=== PATIENT | female | born 1965 | race Caucasian/White ===

== ENCOUNTER 2024-10-15 10:32 | Outpatient (REF) | payer MEDICARE, SELFPAY ==
--- NOTE | ~2024-10-15 | US_ITS ---
CLINICAL HISTORY: DECREASED RT SIDED CAROTID PULSE US Bilateral Carotid Duplex Comparison: None Findings: Bilateral carotid plaques. No arrhythmia. Peak systolic velocities: Right CCA: 111 cm/s. Right ICA: 123 cm/s. Right ECA: Patent. Right vertebral artery flow antegrade. Left CCA: 75 cm/s. Left ICA: Up to 303 cm/s at level of the bulb. Left ECA: Patent. Left vertebral artery flow antegrade. IMPRESSION: Equal to more than 70% stenosis at level of the left ICA bulb. Up to 49% stenosis at level of right ICA and both CCAs. This document has been electronically signed by: Gracie Powell MD on 10/15/2024 12:06:55
--- OUTSIDE RECORDS SUMMARY | 2024-10-15 10:35 | XMS_ITS | Clinical Summary ---
Author Organization [facility] Address [address] [place] [address] Care Team Providers Care Material Disposition Inspector Name Role Phone Unavailable Primary Care Provider Unavailabl e Social History Tobacco Use Types Packs/Day Years Used Date Smoking Tobacco: Never Assessed Sex and Gender Information Value Date Recorded Sex Assigned at Not on file Gender Identity Not on file Sexual Orientation Not on file Plan of Treatment Health Maintenance Due Date Last Done Comments Hepatitis C Virus Screening 1965 HIV Screening 01/27/1976 DTaP/Tdap/Td Vaccines (1 - Tdap) 1982 Pneumococcal Vaccines 50+ (1 of 1 - PCV) 2013 Zoster (Shingles) Vaccine (1 of 2) 2013 COVID-19 Vaccine ( - 2023-2 5 season) 2024 RSV Vaccine 60 years and old er and Patients (1 - 1-dose 75+ series) 2038 Hepatitis B Vaccines Aged Out No long er eligible based on patient's age to complete this topic Pneumococcal Vaccine: Pediat kadeem (0-5 Years) and At-Risk Patients (6 to 49 Years) Aged Out No longer eligible b ased on patient's age to complete this topic
== END 2024-10-15 10:33 | disposition home or self-care (01) ==
LOC: HO.US 10:32
PROVIDERS: PCP Internal Medicine; Visit Provider Internal Medicine
DX: I65.21 Occlusion and stenosis of right carotid artery (principal)
CPT/HCPCS: 93880

== ENCOUNTER → 2024-10-15 10:35 | Outpatient (BNV) | payer MEDICARE, SELFPAY | PROVIDERS: PCP Internal Medicine; Visit Provider Radiology Diagnostic Radiology | DX: I65.23 Occlusion and stenosis of bilateral carotid arteries (principal) | CPT/HCPCS: 93880 ==

== ENCOUNTER 2024-11-06 11:20 | Outpatient (AMB) | payer MEDICARE, SELFPAY ==
--- NOTE | 2024-11-06 11:23 | MHC.OFFVIS ---
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 Patient states she saw her primary care and was told she needed a ultrasound because he could not find a pulse in her feet or neck. No symptoms. Accompanied by: Self / Same As Patient HPI HPI [employer] NETWORK ANALYST/PCP referral for Carotid Stenosis/US 10/15/24: Details: The patient is a 59-year-old female presenting for evaluation of carotid artery disease. Her medical history is significant for an ischemic stroke in November 2005 when she lived in [place], with resulting transient left-sided paralysis which has since completely resolved. Following a recent examination by Dr. Gipson, he was concerned about her carotid status which led to an ultrasound and now for vascular follow-up. During the discussion, the patient disclosed a current smoking habit of approximately six to seven cigarettes daily, indicating efforts to cut down consumption. No history of diabetes mellitus was reported, and she is able to ambulate 0.3 miles to the grocery store with no difficulty. She is currently managed with 81 mg of aspirin and Rosuvastatin, 40 mg daily, which are part of her cerebrovascular prevention strategy, focusing on reducing stroke risk. She is now for vascular follow-up Review of Systems Const All systems reviewed & are unremarkable except as noted in HPI and below Reports no additional complaints ENT Reports Normal hearing present Card Denies chest pain, Denies chest pain at rest, Denies chest pain with activity and Denies pedal edema Resp Denies cough GI Denies abdominal pain Musc Denies abnormal gait, Denies muscle cramps and Denies radiating pain into limb Skin/Breast Denies skin ulcer and Denies wounds Neuro Reports Normal hearing present and Denies abnormal gait Psych Reports no additional complaints Physical Exam Const General: cooperative, healthy appearing and comfortable Orientation/consciousness: oriented to person, oriented to place and oriented to time HEENT Head: Yes normal to inspection Neck Neck: Yes normal visual inspection Carotids: no bruits Chest Chest palpation & inspection: normal inspection of the chest Resp Effort & Inspection: normal respiratory effort and able to speak in complete sentences Auscultation: clear to auscultation bilaterally, no crackles, no rales, no rhonchi and no wheezes Cardio Other: Bilateral DP signals Rate: regular rate Rhythm: regular rhythm Heart sounds: S1 normal heart sound present and S2 normal heart sound present Bruits: no carotid bruits Peripheral pulses: Peripheral pulses 2+ throughout GI Inspection: Yes normal to inspection Skin Wounds: no wounds Hair: normal Neuro General: oriented to person, oriented to place and oriented to time Cranial nerves: Yes CN's II-XII intact bilaterally and Yes Normal hearing present Cognition (Neuro): normal cognition Motor exam (neuro): 5/5 motor strength present throughout Extrem Other: venous exam: No significant superficial varicosities or spider telangiectasias, minimal edema General: No clubbing, No cyanosis and No edema Psych Appearance: grossly normal Mental Status: mental status grossly normal Speech and movement: Normal speech and movement present Assessment & Plan Assessment & Plan (1) Bilateral carotid artery stenosis: Code(s): I65.23 - Occlusion and stenosis of bilateral carotid arteries Category: Medical Plan: The patient needs a computed tomography angiography CTA) to evaluate the degree of stenosis on the left carotid artery following abnormal ultrasound findings. The attention is directed towards assessing if the stenosis has reached a threshold where surgical intervention is indicated to prevent stroke, particularly if it is more than 70%. Kidney function tests are to precede the CTA to ensure it is safe to proceed with contrast administration. Current management with daily aspirin and Rosuvastatin continues, emphasizing the prevention of cerebrovascular events. Arrangements were discussed for immediate blood tests at nearby facilities. No adjustments to current medication are required at this time until further diagnostic results are available. Patient was informed and verbally consented to the use of an ambient scribe for clinic note documentation during this visit. (2) PAD (peripheral artery disease): Code(s): I73.9 - Peripheral vascular disease, unspecified Category: Medical Plan: There is concern that she may have an element of PA D. At the current time she is ambulating well up to 0.3 miles with no evidence of claudication. She does have diminished DP and PT pulses. She will be following us for the carotids and we will continue to a surveilled these as well. At the current time no testing is required. The patient had an opportunity to ask questions regarding the treatment plan. All questions were answered. Imaging studies, laboratory studies and physical exam results were discussed and reviewed in detail. No major barriers to understanding were identified. The patient expressed understanding and agreement with the above treatment plan. The patient is aware they should contact our office by phone for worsening of the current condition or the appearance of new symptoms. Thank you for allowing me to participate in the vascular care of this patient. If you have any questions or concerns regarding the treatment for the above condition please do not hesitate to contact me. The office telephone contact is [phone]. This note is constructed using voice recognition software. While every effort has been made to ensure accuracy, channel rebuilder errors may have been included. Thank you for allowing me to participate in the care of your patient. Yours sincerely, Rajinder Maguire MD, FACS, R.P.V.I. Orders: Orders CT angio neck 1 Week I65.23 - Occlusion and stenosis of bilateral carotid arteries Blood Urea Nitrogen Today I65.23 - Occlusion and stenosis of bilateral carotid arteries Creatinine Today I65.23 - Occlusion and stenosis of bilateral carotid arteries Patient Instructions: - Continue current medications: 81 mg aspirin daily, 40 mg Rosuvastatin daily. - Proceed to the hospital for blood tests to check kidney function today. - Await call from the hospital for CT imaging scheduling. - Continue reducing smoking, aiming for complete cessation. - Monitor for any signs of stroke: sudden weakness, speech changes, vision problems. - Keep routine follow-ups and consider contacting the clinic with any new symptoms. Coding Level of Care Code New Pt Level 4 (87165) Complex EM visit Add On G2211 Diagnoses Bilateral carotid artery stenosis I65.23 PAD (peripheral artery disease) I73.9
--- OUTSIDE RECORDS SUMMARY | 2024-11-06 14:02 | XMS_ITS | Clinical Summary ---
Author Organization [facility] Address [address] [place] [address] Care Team Providers Care Reeling Operator Name Role Phone Unavailable Primary Care Provider [...]
== END 2024-11-06 11:44 | disposition home or self-care (01) ==
LOC: HO.HVS 11:21
PROVIDERS: PCP Internal Medicine; Visit Provider Surgery Vascular Surgery
DX: I65.23 Occlusion and stenosis of bilateral carotid arteries (principal); I73.9 Peripheral vascular disease, unspecified
CPT/HCPCS: 99204; G2211

== ENCOUNTER 2024-11-06 11:20 | Outpatient (REF) | payer MEDICARE, SELFPAY ==
[2024-11-06 13:21] LABS: Blood Urea Nitrogen 33 mg/dL (9-16); Estimated Glomerular Filt Rate 46
--- OUTSIDE RECORDS SUMMARY | 2024-11-06 14:41 | XMS_ITS | Clinical Summary ---
Author Organization [facility] Address [address] [place] [address] Care Team Providers Care Nursing Home Aide Name Role Phone Unavailable Primary Care Provider [...]
== END 2024-11-06 11:21 | disposition home or self-care (01) ==
LOC: HO.LAB 11:20
PROVIDERS: PCP Internal Medicine; Visit Provider Surgery Vascular Surgery
DX: I65.23 Occlusion and stenosis of bilateral carotid arteries (principal); I73.9 Peripheral vascular disease, unspecified
CPT/HCPCS: 36415; 82565; 84520; 99202

== ENCOUNTER 2025-02-06 07:57 | Outpatient (REF) | payer MEDICARE, SELFPAY ==
--- OUTSIDE RECORDS SUMMARY | 2025-02-06 08:00 | XMS_ITS | Clinical Summary ---
Author Organization [facility] Address [address] [place] [address] Care Team Providers Care Lease Operator Name Role Phone Unavailable Primary Care Provider Unavailabl e Social History Tobacco Use Types Packs/Day Years Used Date Smoking Tobacco: Never Assessed Comments Unknown Sex and Gender Information Value Date Recorded Sex Assigned at Not on file Legal Sex Female 11:30 AM EDT Gender Identity Not on file Sexual Orientation [...]
[2025-02-06 08:54] LABS: Creatinine POC 1.7 mg/dL (0.5-1.4); GFR POC 32
[2025-02-06] MEDS: iohexoL 350 MG/ML 100 ML INFUS..BTL IV (09:05)
== END 2025-02-06 07:58 | disposition home or self-care (01) ==
LOC: HO.CT 07:57
PROVIDERS: PCP Internal Medicine; Visit Provider Surgery Vascular Surgery
DX: I65.23 Occlusion and stenosis of bilateral carotid arteries (principal)
CPT/HCPCS: 70498; 82565; Q9967

== ENCOUNTER → 2025-02-06 07:59 | Outpatient (BNV) | payer MEDICARE, SELFPAY | PROVIDERS: PCP Internal Medicine; Visit Provider Radiology Diagnostic Radiology | DX: I65.23 Occlusion and stenosis of bilateral carotid arteries (principal) | CPT/HCPCS: 70498 ==

== ENCOUNTER 2025-02-26 10:57 | Outpatient (AMB) | payer MEDICARE, SELFPAY ==
--- NOTE | 2025-02-26 10:59 | A.OFFVIS_ITS ---
Intake Visit Reasons: follow up CTA Neck Intake Note: Patient presents for follow up CTA neck performed on 02/06/25. No complaints. Accompanied by: Self / Same As Patient Allergies No Known Allergies Allergy (Verified 02/26/25 11:00) HPI HPI follow up CTA Neck: Details: Very pleasant 60-year-old female presents for follow-up regarding carotid disease. She had an ischemic stroke back in November of 2005 when she was down in [place] that resulted in transient left-sided paralysis. She has worked up by her primary care team for her carotid status. Ultrasound was concerning for high-grade carotid stenosis and she now presents for follow-up with CT angiogram. Of note she is being maintained on aspirin and statin. She is able to climb 2 flights of stairs with no significant difficulty or shortness of breath. She now presents for a carotid follow-up. Review of Systems Const All systems reviewed & are unremarkable except as noted in HPI and below Reports no additional complaints ENT Reports Normal hearing present Card Denies chest pain, Denies chest pain at rest, Denies chest pain with activity and Denies pedal edema Resp Denies cough GI Denies abdominal pain Musc Denies abnormal gait, Denies muscle cramps and Denies radiating pain into limb Skin/Breast Denies skin ulcer and Denies wounds Neuro Reports Normal hearing present and Denies abnormal gait Psych Reports no additional complaints Physical Exam Const General: cooperative, healthy appearing and comfortable Orientation/consciousness: oriented to person, oriented to place and oriented to time HEENT Head: Yes normal to inspection Neck Neck: Yes normal visual inspection Carotids: no bruits Chest Chest palpation & inspection: normal inspection of the chest Resp Effort & Inspection: normal respiratory effort and able to speak in complete sentences Auscultation: clear to auscultation bilaterally, no crackles, no rales, no rhonchi and no wheezes Cardio Rate: regular rate Rhythm: regular rhythm Heart sounds: S1 normal heart sound present and S2 normal heart sound present Bruits: no carotid bruits Peripheral pulses: Peripheral pulses 2+ throughout GI Inspection: Yes normal to inspection Skin Wounds: no wounds Hair: normal Neuro General: oriented to person, oriented to place and oriented to time Cranial nerves: Yes CN's II-XII intact bilaterally and Yes Normal hearing present Cognition (Neuro): normal cognition Motor exam (neuro): 5/5 motor strength present throughout Extrem Other: venous exam: No significant superficial varicosities or spider telangiectasias, minimal edema General: No clubbing, No cyanosis and No edema Psych Appearance: grossly normal Mental Status: mental status grossly normal Speech and movement: Normal speech and movement present Results Reviewed Results Reviewed: CT angiogram dated 02/06/2025 demonstrates right-sided carotid stenosis of 90%, and left-sided stenosis of a proximally 50%. Assessment & Plan Assessment & Plan (1) Bilateral carotid artery stenosis: Code(s): I65.23 - Occlusion and stenosis of bilateral carotid arteries Category: Medical Plan: In short patient has high-grade right carotid stenosis. Patient will require right carotid endarterectomy. Risks benefits complications including bleeding infection stroke and were reviewed with the patient. She understood and would like to move forward. We have reviewed signs and symptoms of a stroke. We also discussed risk factor modification inclusive a healthy diet low in cholesterol. She will require cardiac risk stratification prior to surgery. Thank you for allowing us to participate in this patient's care. If there are any questions or concerns please do not hesitate to contact us. Coding Level of Care Code Est Pt Level 4 (35353) Complex EM visit Add On G2211 Diagnoses Bilateral carotid artery stenosis I65.23
--- OUTSIDE RECORDS SUMMARY | 2025-02-26 12:12 | XMS_ITS | Clinical Summary ---
Author Organization [facility] Address [address] [place] [address] Care Team Providers Care Fell Cutter Name Role Phone Unavailable Primary Care Provider [...]
== END 2025-02-26 11:18 | disposition home or self-care (01) ==
LOC: HO.HVS 10:58
PROVIDERS: PCP Internal Medicine; Visit Provider Surgery Vascular Surgery
DX: I65.23 Occlusion and stenosis of bilateral carotid arteries (principal)
CPT/HCPCS: 99214; G2211

== ENCOUNTER → 2025-02-26 10:57 | Outpatient (BNVA) | payer MEDICARE, SELFPAY | PROVIDERS: PCP Internal Medicine; Visit Provider Surgery Vascular Surgery | DX: I65.23 Occlusion and stenosis of bilateral carotid arteries (principal) | CPT/HCPCS: 99212 ==

== ENCOUNTER 2025-02-28 10:49 | Outpatient (AMB) | payer MEDICARE, SELFPAY ==
--- NOTE | 2025-02-28 10:54 | A.OFFVIS_ITS ---
Vital Signs 02/28/25 11:00 Height 5 ft 6 in Weight 152 lb 1.903 oz BMI 24.5 BP 110/78 Blood Pressure Location Lt brachial Position Sitting Pulse 84 Pulse Source Monitor Intake Visit Reasons: Preop/ Dr Maguire/endarterectomy Allergies No Known Allergies Allergy (Verified 02/26/25 11:00) Medication List - Last Reconciled 02/28/25 by Lexx David MD aspirin 81 mg PO DAILY lisinopril 20 mg PO DAILY metoprolol succinate ER 25 mg PO DAILY omeprazole 20 mg PO DAILY rosuvastatin 40 mg PO DAILY topiramate XR 50 mg PO DAILY trazodone 50 mg PO BEDTIME PRN HPI Comments Details: Audrey is here for consultation regarding preoperative risk stratification for carotid surgery. She does not have any known cardiac issues. No known coronary disease or myocardial infarction or cardiomyopathy. Within limits of her activity, she denies any clear-cut cardiac symptoms like angina. Has multiple risk factors including smoking, hypertension, dyslipidemia on appropriate medications. Per vascular notes, remote history of ischemic stroke in 2005 while living in [place]. Symptoms resolved since then. [facility] Medical History (Updated 02/28/25 @ 12:26 by Lexx David MD) Smoker Hyperlipidemia, unspecified Primary hypertension Blood clot of neck vein Stroke delivery delivered Family History (Updated 02/28/25 @ 11:04 by Sonia Morales) Mother Heart attack Father Heart attack Sister History of open heart surgery Social History (Updated 02/28/25 @ 11:04 by Sonia Morales) Alcohol intake: current Alcohol intake frequency: a few times a month Alcohol type: wine Patient Tobacco Use Status: Current everyday Tobacco user Review of Systems Const Denies weakness ENT Denies dizziness Card Denies chest pain, Denies chest pain with activity, Denies syncope, Denies rapid heart rate, Denies pedal edema, Denies edema, Denies leg edema, Denies lightheadedness, Denies palpitations, Denies dyspnea, Denies dyspnea on exertion and Denies orthopnea Resp Denies cough, Denies dyspnea and Denies dyspnea on exertion GI Denies hematochezia and Denies change in stool character Musc Denies abnormal gait, Denies muscle cramps, Denies muscle weakness, Denies numbness, Denies radiating pain into limb and Denies tingling Neuro Denies abnormal gait, Denies dizziness, Denies syncope, Denies numbness, Denies tingling and Denies weakness Endo Denies palpitations Physical Exam Vital Signs: Last Vital Signs Pulse 84 02/28/25 11:00 BP 110/78 02/28/25 11:00 BMI result Body Mass Index 24.5 Const General: comfortable and no acute distress Orientation/consciousness: patient oriented x3 HEENT Other: Unremarkable Head: Yes normal to inspection Neck Neck: Yes normal visual inspection Chest Chest palpation & inspection: normal inspection of the chest Resp Auscultation: clear to auscultation bilaterally Cardio Palpation: normal PMI Heart sounds: S1 normal heart sound present, S2 normal heart sound present, no gallops, no murmurs and no rubs GI Palpation (GI): Soft to palpation Back/Spine/Pelvis Other: unremarkable Skin General skin exam: no rashes or lesions noted Neuro General: patient oriented x3 Extrem General: Yes normal to inspection Psych Mental Status: mental status grossly normal Office Procedures EKG Details: EKG with underlying sinus rhythm at 84/Min; right bundle-branch block pattern; [place] [address]-[id number], Complete Assessment & Plan Assessment & Plan (1) Preoperative cardiovascular examination: Code(s): Z01.810 - Encounter for preprocedural cardiovascular examination Category: Medical (2) Bilateral carotid artery stenosis: Code(s): I65.23 - Occlusion and stenosis of bilateral carotid arteries Category: Medical (3) Primary hypertension: Code(s): I10 - Essential (primary) hypertension Category: Medical (4) Hyperlipidemia, unspecified: Code(s): E78.5 - Hyperlipidemia, unspecified Category: Medical (5) Smoker: Code(s): F17.200 - Nicotine dependence, unspecified, uncomplicated Category: Social Hx Plan Carotid ultrasound shows 90% narrowing in the proximal right internal carotid artery and 50% in the proximal left internal carotid artery. Large right MCA distribution infarct. Due to many risk factors, she needs a comprehensive cardiac evaluation. We will get an echocardiogram and stress perfusion imaging study. Continue medications for blood pressure and lipids. Strongly advised smoking cessation, especially before surgery. We will make an addendum after the testing is reviewed. Orders: Orders CA echo transthoracic complete Today I25.10 - Atherosclerotic heart disease of [place] coronary artery without angina pectoris CA stress test Today Z01.810 - Encounter for preprocedural cardiovascular examination NM cardiolite stress test Today Z01.810 - Encounter for preprocedural cardiovascular examination Coding Level of Care Code New Pt Level 4 (68413) Complex EM visit Add On G2211 Diagnoses Preoperative cardiovascular examination Z01.810 Bilateral carotid artery stenosis I65.23 Primary hypertension I10 Hyperlipidemia, unspecified E78.5 Smoker F17.200 CPT Codes EKG - CPT: 97089-[id number], Complete ([id number])
[2025-02-28 11:00] VITALS: BP 110/78; PULSE 84; BMI 24.5
--- OUTSIDE RECORDS SUMMARY | 2025-02-28 11:39 | XMS_ITS | Clinical Summary ---
Author Organization [facility] Address [address] [place] [address] Care Team Providers Care Pencils Washer Name Role Phone Unavailable Primary Care Provider [...]
== END 2025-02-28 11:15 | disposition home or self-care (01) ==
LOC: HO.HCS 10:50
PROVIDERS: PCP Internal Medicine; Visit Provider Internal Medicine
DX: Z01.818 Encounter for other preprocedural examination (principal); I65.23 Occlusion and stenosis of bilateral carotid arteries; I10 Essential (primary) hypertension; E78.5 Hyperlipidemia, unspecified; F17.200 Nicotine dependence, unspecified, uncomplicated
CPT/HCPCS: 93010; 99204

== ENCOUNTER → 2025-02-28 10:49 | Outpatient (BNVA) | payer MEDICARE, SELFPAY | PROVIDERS: PCP Internal Medicine; Visit Provider Internal Medicine | DX: Z01.810 Encounter for preprocedural cardiovascular examination (principal); I65.23 Occlusion and stenosis of bilateral carotid arteries; I10 Essential (primary) hypertension; I45.10 Unspecified right bundle-branch block; R94.31 Abnormal electrocardiogram [ECG] [EKG]; E78.5 Hyperlipidemia, unspecified; F17.200 Nicotine dependence, unspecified, uncomplicated; Z79.82 Long term (current) use of aspirin; Z79.899 Other long term (current) drug therapy | CPT/HCPCS: 93005; 99202 ==

== ENCOUNTER → 2025-03-18 07:41 | Outpatient (REF) | payer MEDICARE, SELFPAY ==
--- NOTE | ~2025-03-18 | NM_ITS ---
Lexiscan Myocardial perfusion study Indication: Preoperative cardiac evaluation Technique: The patient was brought in for a Lexiscan perfusion study on 03/18/2025 and was injected 0.4 mg of Lexiscan intravenously. Within a minute of this injection 25 mCi of sestamibi was given intravenously. Images were obtained using the SPECT gamma camera interlaced with the gating device. Images were obtained in supine position. Resting perfusion study was performed on 03/21/2025. Patient was administered 25 mCi of sestamibi intravenously at rest. Images were then obtained in supine position. Total DLP 91 mGy-cm. Images were processed with the software and compared side to side in short axis, horizontal long axis and vertical long axis views. Findings: Raw aquisition reviewed. The stress perfusion study showed no significant perfusion defects. Both uncorrected as well as CT attenuation corrected images were reviewed. The gated study shows normal LV systolic function with calculated LVEF of 55%. LV cavity is normal in size. The gated study shows normal wall thickening and contraction of segments. Resting study shows no significant perfusion defects. Gating at rest reveals normal wall motion with ejection fraction at 52%, but visually appears higher. The findings are consistent with no clear reversible or fixed perfusion defects. NM/NM cardiolite stress test Impression: 1. Myocardial perfusion imaging study shows normal myocardial perfusion. 2. Gated LVEF is 55% during stress. 3. Transient ischemic dilatation not present. EKG component of the test reported separately. Electronically signed by: Lexx David MD 03/21/2025 04:00 PM EDT
--- OUTSIDE RECORDS SUMMARY | 2025-03-18 07:44 | XMS_ITS | Clinical Summary ---
Author Organization [facility] Address [address] [place] [address] Care Team Providers Care Rubber Production Machine Operator Name Role Phone Unavailable Primary Care [...]
--- NOTE | 2025-03-18 07:57 | CA_ITS ---
Acquisition Time: 2025-03-18 09:06:57 Total Exercise Time: 00:11:20 Test Indications: P,REOP Medications: METOPROL.OL ASA LISINOPRIL Protocol: LOURDES Max HR: 151 BPM 95% of Pred: 158 BPM Max BP: 102/68 mmHG Max Work Load: 1.4 METS Exercise stress test with exercise 30 secs, stopped treadmill and switched test to Lexiscan due to left leg weakness. Pharmacological stress test with Lexiscan while pt moves her legs in chair, with reports of dizziness, headache, and SOB, without any arrythmias, with normotensive response to injection. Nondiagnostic EKG for ischemia. In recovery, pt treated with IVP Aminophylline 75 mg to reverse Lexiscan after which pt feeling back to baseline. Nuclear images pending. Test reviewed with Dr. Soares. Referred By: Lexx David Electronically Signed By: Christopher Monroy
--- NOTE | 2025-03-18 07:57 | CA_ITS ---
Transthoracic Echocardiogram Patient (Last, First, Middle): Audrey Stern, Gender: Female Date of : 1965 Age: 60 Procedure Date: 03/18/2025 Procedure Type: Transthoracic Echocardiogram Location: OP Height: 167.64 cm Weight: 66.68 kg BSA: 1.75 m2 Heart Rate: bpm BP: 124 / 80 mmHg Activity Aid: Referring MD: Lexx David MD Symptoms: I25.10 - Atherosclerotic heart disease of [place] coronary artery without... Study Quality: Adequate ECG Rhythm: Sinus Conclusions: - The left ventricular systolic function is normal. The calculated ejection fraction is 58% by biplane method. - No obvious valvular pathology seen on this study. Findings Left Ventricle Normal left ventricular cavity size. There is mildly increased left ventricular wall thickness. The left ventricular systolic function is normal. The calculated ejection fraction is 58% by biplane method. There is no evidence of regional wall motion abnormalities. Diastolic function is normal for age. Right Ventricle Normal right ventricular cavity size and systolic function. Atria Both atria are normal in size. Aortic Valve There is a normal trileaflet aortic valve. There is no aortic valve stenosis. There is no aortic valve regurgitation. Mitral Valve There is mild mitral annular calcification. There is no mitral valve regurgitation. There is no mitral valve stenosis. Pulmonic Valve The pulmonic valve is likely normal. Tricuspid Valve There is no tricuspid valve regurgitation. There is no evidence of pulmonary hypertension. Great Vessels The asc aorta is normal in size. Venous The inferior vena cava is normal in size and collapses greater than 50% with inspiration. Pericardium/Pleural There is no evidence of pericardial effusion. Prior Study Comparison No prior study available for comparison. Recommendations, Care & Conclusions No obvious valvular pathology seen on this study. Measurements 2D Linear Measurements IVSd: 1.11 0.6-0.9/0.6-1.0 cm LVIDd: 4.06 3.9-5.3/4.2-5.9 cm LVIDd Index: 2.32 2.4-3.2/2.2-3.1 cm/m2 LVIDs: 2.81 2.0-3.6 cm LVPWd: 1.13 0.7-1.1 cm Ao Root: 2.90 2.1-3.5 cm LA Diam: 3.00 2.7-3.8/3.0-4.0 cm LAIDs Index: 1.71 1.5-2.3 cm/m2 LV Mass: 190.45 67-162/88-224 g LV Mass Index: 108.83 43-95/49-115 g/m2 LVOT Diam: 2.00 3.0+(-)1.3 cm 2D Systolic Function EF 4C: 58.80 >55% EF 2C: 60.60 >55% EF BiP: 57.80 >55% Mitral Valve MV Pk E: 0.65 MV PK A: 0.74 MV Decel Time: 127.00 E/A: 0.90 E'Lateral: 6.09 E'Medial: 4.79 E/E' Med: 13.60 E/E' Lat: 10.70 PHT: 37.00 MVA PHT: 5.95 Decel [place]: 5.14 Aortic Valve AoV Pk Sabino: 1.28 AoV Mn Sabino: 0.85 AoV VTI: 0.30 AoV Pk Grad: 7.00 Aov Mn Grad: 3.00 CLIF Cont.VTI: 1.93 LVOT LVOT Pk Sabino: 0.84 LVOT Mn Sabino: 0.53 LVOT VTI: 0.19 LVOT Pk Grad: 3.00 LVOT Mn Grad: 1.00 LVOT Diam: 2.00 LVOT Area: 3.14 Diastolic Function MV Pk E: 0.65 MV Pk A: 0.74 E/A: 0.90 E'Medial: 4.79 E/E' Med: 13.60 E' Laterial: 6.09 E/E' Lat: 10.70 Right Ventricle TAPSE (mm): 22.00 TVS' Sabino: 12.00 Tricuspid Valve TR Pk Sabino: 1.58 TR Pk Grad: 10.00 RA Press: 3.00 RVSP: 13.00 Great Vessels Aorta Ao Root-2D: 2.90 2.0-3.7 cm Ao Asc: 3.00 2.1-3.4 cm Pulmonary Valve PV Pk Sabino: 0.92 Peak PV Grad: 3.00 Updated in Other Vendor System with Status of Final Lexx David MD electronically signed on 03/19/2025 11:49:53 AM with status of Final
== END ==
LOC: HO.CARD 07:41
PROVIDERS: PCP Internal Medicine; Visit Provider Internal Medicine
DX: I25.10 Atherosclerotic heart disease of native coronary artery without angina pectoris (principal); Z01.810 Encounter for preprocedural cardiovascular examination
CPT/HCPCS: 78452; 93017; 93306; A9500; J0280; J2785

== ENCOUNTER → 2025-03-18 07:57 | Outpatient (BNV) | payer MEDICARE, SELFPAY | PROVIDERS: PCP Internal Medicine | DX: I34.81 Nonrheumatic mitral (valve) annulus calcification (principal) | CPT/HCPCS: 78452; 93016; 93018; 93320; 93325; 93350 ==

== ENCOUNTER 2025-04-08 07:16 | Inpatient (IN) | payer MEDICARE, SELFPAY ==
[2025-03-20 14:20] VITALS: BMI 24.8
[2025-03-21 10:35] VITALS: BP 104/84; PULSE 85; RESP 16; O2SAT 100; BMI 27.1
[2025-03-26 10:44] LABS: Hematocrit 33.4 % (37.0-47.0); Hemoglobin 10.7 g/dl (12.0-16.0); Mean Corpuscular HGB Conc 32.0 g/dl (31.0-35.0); Mean Corpuscular Hemoglobin 32.1 pg (27.0-33.0); Mean Corpuscular Volume 100.3 fL (80.0-98.0); NRBC Abs Auto 0.000 X10*3/uL (0.0-0.012); NRBC Pct Auto 0.0 /100WBC (0.0-0.2); Platelet Count 140 X10*3/uL (160-400); Red Blood Count 3.33 X10*6/uL (4.20-5.50); White Blood Count 5.5 X10*3/uL (4.8-10.8)
[2025-03-26 10:47] LABS: INTERNATIONAL NORM RATIO 0.9 (0.9-1.1); Prothrombin Time 10.1 SEC (10.9-12.4)
[2025-03-26 10:50] LABS: Partial Thromboplastin Time 31.6 SEC (26.0-36.8)
[2025-03-26 11:15] LABS: Anion Gap 14 (12-20); Blood Urea Nitrogen 34 mg/dL (9-16); Calcium 9.2 mg/dL (8.4-10.2); Carbon Dioxide 21 mmol/L (22-29); Chloride 110 mmol/L (96-108); Creatinine Clr Calc Pharmacy 30.3; Estimated Glomerular Filt Rate 27; Potassium 5.5 mmol/L (3.3-5.1); Sodium 139 mmol/L (135-145)
--- NOTE | 2025-04-04 13:58 | HO.ANESPROP2 ---
Documented by User: Lien Cornejo NP 04/05/25 09:58 HPI - Anesthesia Eval Consult details Narrative: 60yo F for Right Carotid Endarterectomy Cardiac optimized. Preop risk stratification by [facility] Cardiology. No previous cataract hx. Preop labs with abn. Dr Maguire aware and plan to repeat DOS. [facility] Active Problems Active Problems: All Active Problems Preoperative cardiovascular examination (Acute) PAD (peripheral artery disease) (Acute) Bilateral carotid artery stenosis (Acute) Smoker (Acute) Hyperlipidemia, unspecified (Acute) Primary hypertension (Acute) Past Medical History Medical History GERD (gastroesophageal reflux disease) CVA (cerebral vascular accident) Osteoporosis PVD (peripheral vascular disease) Hemiplegia Asthma Smoker Hyperlipidemia, unspecified Primary hypertension Blood clot of neck vein Stroke delivery delivered Family History Family History Mother Heart attack Father Heart attack Sister History of open heart surgery Surgical History Surgical History Hx of section Social History Social History Alcohol intake: current Alcohol intake frequency: a few times a month Alcohol type: wine Patient Tobacco Use Status: Current everyday Tobacco user Use of substances other than those prescribed or required for medical reasons: No Have you been hit, kicked, punched, or otherwise hurt by someone within the past year? If so, by whom?: No Are you DNR?: No Advance Directives: No Advance Directives Information Provided: No Advance Directives on File: No Patient : No : No Meds Allergies Allergy/AdvReac Type Severity Reaction Status Date / Time No Known Allergies Allergy Verified 04/08/25 06:22 Home Medications ?Medication ?Instructions ?Recorded ?Confirmed ?Last Taken ?Type aspirin 81 mg tablet,delayed 81 mg PO DAILY 11/06/24 03/21/25 04/07/25 History release lisinopril 20 mg tablet 20 mg PO DAILY 11/06/24 03/21/25 Unknown History metoprolol succinate 25 mg 25 mg PO DAILY 11/06/24 03/21/25 04/08/25 History tablet,extended release 24 hr omeprazole 20 mg capsule,delayed 20 mg PO DAILY 11/06/24 03/21/25 04/08/25 History release rosuvastatin 40 mg tablet 40 mg PO DAILY 11/06/24 03/21/25 Unknown History topiramate 50 mg capsule,extended 50 mg PO DAILY PRN Headache 11/06/24 03/21/25 Unknown History release 24 hr albuterol sulfate 90 mcg/actuation 1 - 2 puff inhalation Q4-6H PRN 03/21/25 03/21/25 04/08/25 History aerosol inhaler Shortness Of Breath Or Wheezing calcium 600 mg (as 1 tab PO DAILY 03/21/25 03/21/25 Unknown History carbonate)-vitamin D3 10 mcg (400 unit) tablet (Calcium 600 + D(3)) diphenhydramine 25 1 tab PO BEDTIME PRN Insomnia 03/21/25 03/21/25 Unknown History mg-acetaminophen 500 mg tablet (Acetaminophen PM) fluticasone fur. 100 mcg-umeclid 1 ea inhalation DAILY 03/21/25 03/21/25 Unknown History 62.5 mcg-vilant 25 mcg inhalat.powder (Trelegy Ellipta) Exam Height,Weight and Vital Signs: Height 5 ft 4 in Weight 71.668 kg Last Vital Signs Pulse 85 03/21/25 10:35 Resp 16 03/21/25 10:35 BP 104/84 03/21/25 10:35 Pulse Ox 100 03/21/25 10:35 O2 Del Method Room Air 03/21/25 10:35 Pertinent Lab Results Pertinent Lab Results: Laboratory Tests 03/26/25 03/26/25 09:50 10:02 WBC 5.5 RBC 3.33 L Hgb 10.7 L Hct 33.4 L MCV 100.3 H MCH 32.1 MCHC 32.0 RDW 14.1 Plt Count 140 L MPV 11.0 Absolute Nucleated RBC 0.000 Nucleated RBC % (auto) 0.0 PT 10.1 L INR 0.9 APTT 31.6 Sodium 139 Potassium 5.5 H Chloride 110 H Carbon Dioxide 21 L Anion Gap 14 BUN 34 H Creatinine 1.87 H Estim Creat Clear Calc 30.3 Estimated GFR 27 Random Glucose 101 Calcium 9.2 Blood Type O Positive Antibody Screen NEGATIVE Narrative Narrative: EKG 02/2025 Details: EKG with underlying sinus rhythm at 84/Min; right bundle-branch block pattern; normal WI and corrected QT. ECHO 02/2025 Conclusions: - The left ventricular systolic function is normal. The calculated ejection fraction is 58% by biplane method. - No obvious valvular pathology seen on this study. NM cardiolite stress test 02/2025 Impression: 1. Myocardial perfusion imaging study shows normal myocardial perfusion. 2. Gated LVEF is 55% during stress. 3. Transient ischemic dilatation not present. EKG component of the test reported separately. Head/Neck CTA 01/2025 IMPRESSION: 1. No large vessel occlusion. 2. 90% luminal narrowing of the proximal right internal carotid artery. 3. 50% luminal narrowing of the proximal left internal carotid artery. 4. Partial visualization of a large right MCA distribution infarct. Correlation with the prior imaging of the head suggested. Documented by User: Braydon Rodriguez MD 04/08/25 07:33 [facility] Past Medical History Medical History GERD (gastroesophageal reflux disease) CVA (cerebral vascular accident) Osteoporosis PVD (peripheral vascular disease) Hemiplegia Asthma Smoker Hyperlipidemia, unspecified Primary hypertension Blood clot of neck vein Stroke delivery delivered Functional capacity: independent ambulation Family History Family History Mother Heart attack Father Heart attack Sister History of open heart surgery Family history of problems with anesthesia: No Surgical History Surgical History Hx of section History of Problems with Anesthesia: No Social History Social History Alcohol intake: current Alcohol intake frequency: a few times a month Alcohol type: wine Patient Tobacco Use Status: Current everyday Tobacco user Use of substances other than those prescribed or required for medical reasons: No Have you been hit, kicked, punched, or otherwise hurt by someone within the past year? If so, by whom?: No Are you DNR?: No Advance Directives: No Advance Directives Information Provided: No Advance Directives on File: No Patient : No : No Meds Allergies Allergy/AdvReac Type Severity Reaction Status Date / Time No Known Allergies Allergy Verified 04/08/25 06:22 Home Medications ?Medication ?Instructions ?Recorded ?Confirmed ?Last Taken ?Type aspirin 81 mg tablet,delayed 81 mg PO DAILY 11/06/24 03/21/25 04/07/25 History release lisinopril 20 mg tablet 20 mg PO DAILY 11/06/24 03/21/25 Unknown History metoprolol succinate 25 mg 25 mg PO DAILY 11/06/24 03/21/25 04/08/25 History tablet,extended release 24 hr omeprazole 20 mg capsule,delayed 20 mg PO DAILY 11/06/24 03/21/25 04/08/25 History release rosuvastatin 40 mg tablet 40 mg PO DAILY 11/06/24 03/21/25 Unknown History topiramate 50 mg capsule,extended 50 mg PO DAILY PRN Headache 11/06/24 03/21/25 Unknown History release 24 hr albuterol sulfate 90 mcg/actuation 1 - 2 puff inhalation Q4-6H PRN 03/21/25 03/21/25 04/08/25 History aerosol inhaler Shortness Of Breath Or Wheezing calcium 600 mg (as 1 tab PO DAILY 03/21/25 03/21/25 Unknown History carbonate)-vitamin D3 10 mcg (400 unit) tablet (Calcium 600 + D(3)) diphenhydramine 25 1 tab PO BEDTIME PRN Insomnia 03/21/25 03/21/25 Unknown History mg-acetaminophen 500 mg tablet (Acetaminophen PM) fluticasone fur. 100 mcg-umeclid 1 ea inhalation DAILY 03/21/25 03/21/25 Unknown History 62.5 mcg-vilant 25 mcg inhalat.powder (Trelegy Ellipta) Exam Exam Date and Time: 04/08/2025 Airway Mallampati Class: II TM Dist: >3cm Neck ROM: Full Heart: rrr Lungs: cta Other: hemiplegia left sided waness Assessment and Plan Assessment Anesthesia Assessment: Anesthesia Plan Discussed, Smoking Cess. Discussed and Chart Reviewed Final Anesthetic Review Family History of Problems with Anesthesia: No History of Problems with Anesthesia: No NPO: Yes ASA Class: III Final Preanesthetic Review: No Changes in Pt Med Stat, Meds/Allgs Chart Reviewed, Consent Obtained/Reviewed and Anes Risks/Benef Reviewed Patient Risk: Low Procedure Risk: Low Anesthetic Plan Anesthetic Plan: GA Disposition: Standard PACU
[2025-04-08] VITALS (23 sets, daily range): BP systolic 112–174; BP diastolic 56–93; PULSE 62–90; RESP 10–18; TEMP 35.6–36.8; O2SAT 91–100
[2025-04-08] MEDS: Lactated Ringers 1,000 ML 100 ML IVCONT ×4 (06:27→22:31)
[2025-04-08 07:17] LABS: Anion Gap 13 (12-20); Blood Urea Nitrogen 39 mg/dL (9-16); Calcium 9.4 mg/dL (8.4-10.2); Carbon Dioxide 20 mmol/L (22-29); Chloride 114 mmol/L (96-108); Creatinine Clr Calc Pharmacy 35.8; Estimated Glomerular Filt Rate 33; Potassium 4.7 mmol/L (3.3-5.1); Sodium 142 mmol/L (135-145)
[2025-04-08 07:18] LABS: Hematocrit 32.5 % (37.0-47.0); Hemoglobin 10.3 g/dl (12.0-16.0); Mean Corpuscular HGB Conc 31.7 g/dl (31.0-35.0); Mean Corpuscular Hemoglobin 32.3 pg (27.0-33.0); Mean Corpuscular Volume 101.9 fL (80.0-98.0); NRBC Abs Auto 0.000 X10*3/uL (0.0-0.012); NRBC Pct Auto 0.0 /100WBC (0.0-0.2); Platelet Count 119 X10*3/uL (160-400); Red Blood Count 3.19 X10*6/uL (4.20-5.50); White Blood Count 4.2 X10*3/uL (4.8-10.8)
--- OUTSIDE RECORDS SUMMARY | 2025-04-08 07:19 | XMS_ITS | Clinical Summary ---
Author Organization [facility] Address [address] [place] [address] Care Team Providers Care Purchasing Expeditor Name Role Phone Unavailable Primary Care Provider [...]
[2025-04-08 07:25] LABS: INTERNATIONAL NORM RATIO 0.9 (0.9-1.1); Prothrombin Time 10.2 SEC (10.9-12.4)
[2025-04-08 07:28] LABS: Partial Thromboplastin Time 28.6 SEC (26.7-34.1)
--- NOTE | 2025-04-08 07:37 | PC.NURSE ---
dr. guzmán reviewed lab results completed this a.m. at request of author. dr. guzmán stated okay to proceed.
--- NOTE | 2025-04-08 07:37 | MHC.SHP ---
Pre-Procedural Eval Section A - 24 Hr Update-Section A only Date of Service: 04/08/25 Section B - Complete if H&P > 30 days Chief Complaint: post op Relevant Family History (Specify if Yes): No Relevant Social History: None Present Medications: None Allergies: Allergies Allergy/AdvReac Type Severity Reaction Status Date / Time No Known Allergies Allergy Verified 04/08/25 06:22 Review of Systems Sugical H&P ROS: Negative: Constitution, Cardiovascular, Respiratory, Gastrointestinal and Genitourinary Exam Surgical H&P Exam: Normal: HEENT, Normal: Heart, Normal: Lungs and Normal: Extremities Plan Diagnosis/Plan: Unchanged I have reviewed the history and physical and performed a pertinent physical examination on my patient. No changes have occurred unless specified. Time Spent With Patient Time: Total time managing care of this patient today ____ minutes.
--- NOTE | 2025-04-08 11:40 | P.OP_ITS ---
Operative Note Operative Note Date of Service: 04/08/25 Narrative: Operative note by [facility] Preoperative diagnosis:1. Right Carotid stenosis Postoperative diagnosis: Same Procedure: Right Carotid endarterectomy with patch angioplasty Surgeon:Rajinder Maguire M.D. Sales Lead Generator: Dennys ANGEL Anesthesia: General Specimens: 1 Drains: 1 Estimated blood loss: 100 mL Indications: Very pleasant 60-year-old female who on CT angiogram was noted to have high-grade right carotid stenosis The patient has signed the informed consent after reviewing risks, complications, benefits, and alternatives previously discussed with the patient. The patient was given the opportunity to ask any additional questions or voice any concerns. All questions were answered to the patient's satisfaction. Procedure in detail: Patient was taken to the operating room and placed in a supine position and prepped and draped in sterile manner with ChloraPrep. Longitudinal incision was made along the anterior border of the right sternocleidomastoid carried down through the subcutaneous fat and fascia. Hemostasis was obtained with electrocautery. The platysma muscle was then divided. The carotid sheath was identified in open. The vagus nerve, Ancef cervicalis, and hypoglossal nerves were identified and avoided. The common internal and external carotids were then freed from the surrounding tissue. At this point, 5000 units of heparin was administered and allowed to circulate for 5 minutes time to take effect. The internal, common, external carotids were clamped in that order. Once this was accomplished, we proceeded with the procedure. The carotid bulb was opened with an 11 blade and extended with Gomez scissors through the very tight lesion into normal internal carotid artery. This was then extended down into the common carotid artery. We then placed a Singh shunt. Then the plaque was sharply excised proximally and an eversion endarterectomy was performed successfully at the external. The plaque tapered nicely on to the internal and no tacking sutures were necessary. Heparinized saline was injected and no evidence of flapping or other debris was noted. The remaining carotid was examined, which showed no debris or flaps present. At this point a XenoSure patch was brought on to the field. This was anastomosed to the artery using a 6 0 Prolene in a running fashion. Once approximately 4/5 of the patch was sewn in the shunt was then removed. Prior to the last stitch the internal carotid was back bled through this. Heparinized saline was instilled into the carotid. The last stitch was tied. Hemostasis was excellent. The internal carotid was gently occluded while while of the external and internal were open in that order. Finally the internal was then opened and flow was restored to the entire system. Hemostasis was achieved with interrupted 7-0 Prolene sutures. The wound was irrigated thoroughly. We then used Vistaseal as a hemostatic agent. Deep layer was reapproximated using a 2-0 poly Sorb and finally the superficial layer with a 3-0 Polysorb. The skin was closed in a subcuticular manner. The patient awoke and neurologic status was checked and appeared to be intact. Sponge, needle and instrument counts were correct. The patient tolerated the procedure well. Returned to recovery with stable vitals. This note is constructed using voice recognition software. While every effort has been made to ensure accuracy, fractionation supervisor errors may have been included. Thank you for allowing me to participate in the care of your patient. Yours sincerely, Rajinder Maguire MD, FACS, R.P.V.I.
--- NOTE | 2025-04-08 14:47 | PHA.MEDREC ---
Pharmacy Consult ? Medication Reconciliation Pharmacy reviewed med rec done by nursing. Spoke with pt and she confirmed her medications. Pt confirmed she takes Trazodone every night at bedtime; confirmed that on the med rec. Pt only took Omeprazole and Metorprolol this morning before coming in for her surgery; everything else was taken yesterday.
--- NOTE | 2025-04-08 14:52 | PHA.MEDREC ---
Addendum entered by Diana Ha RPh 04/08/25 15:12: MED REC REVIEWED BY [facility] Original Note: Pharmacy Consult ? Medication Reconciliation Pharmacy reviewed med rec done by nursing. Spoke with pt and she confirmed her medications. Pt confirmed she takes Trazodone every night at bedtime; confirmed that on the med rec. Pt only took Omeprazole and Metorprolol this morning before coming in for her surgery; everything else was taken yesterday. Patient stated she is not/never was taking Ezetimibe and states she only takes Rosuvastatin for high cholesterol.
--- NOTE | 2025-04-08 15:16 | PM.CCHP ---
History of Present Illness Date of Service: 04/08/25 Chief Complaint: Status post elective right carotid endarterectomy 60-year-old lady with underlying history of hypertension, prior CVA with residual deficits - mild left-sided paresis and slurring of the speech, COPD, peripheral artery disease, now postoperative day 0 after an elective right carotid endarterectomy being monitored in the intensive care unit. Review of Systems Constitutional: Constitutional: Denies daytime sleepiness, Denies excessive sweating, Denies fatigue, Denies fever(s), Denies lethargy, Denies malaise, Denies night sweats, Denies snoring and Denies weight loss Eyes: Eyes: Denies blurry vision and Denies itchy eyes ENT: Denies nasal congestion, Denies post nasal drip, Denies sinus pain, Denies sinus pressure and Denies other ( Thrush) Cardiovascular: Cardiovascular: Denies chest pain, Denies pedal edema, Denies dyspnea, Denies orthopnea and Denies paroxysmal nocturnal dyspnea Respiratory: Respiratory: Denies cough, Denies hemoptysis, Denies excessive phlegm production, Denies dyspnea, Denies snoring and Denies wheezing Gastrointestinal: Gastrointestinal: Denies abdominal pain and Denies heartburn Musculoskeletal: Musculoskeletal: Denies myalgias, Denies arthralgias and Denies joint swelling Integumentary/Breasts: Skin/Breast: Denies rash Neurologic: Denies memory loss and Denies seizure-like activity Psychiatric: Psychiatric: Denies abnormal sleep pattern, Denies anxiety and Denies memory loss Endocrine: Endocrine: Denies excessive sweating, Denies fatigue and Denies heat intolerance Hematologic/Lymphatic: Hematologic/Lymphatic: Denies easy bruising Allergic/Immunologic: Allergic/Immunologic: Denies itchy eyes, Denies seasonal rhinorrhea and Denies wheezing PMFSH Past Medical History Medical History GERD (gastroesophageal reflux disease) CVA (cerebral vascular accident) Osteoporosis PVD (peripheral vascular disease) Hemiplegia Asthma Smoker Hyperlipidemia, unspecified Primary hypertension Blood clot of neck vein Stroke delivery delivered Family History Family History Mother Heart attack Father Heart attack Sister History of open heart surgery Surgical History Surgical History Hx of section Social History Social History Household Members: None Housing: Apartment Are you a primary health care liaison to a significant other at home: No Do you presently have visiting nurse or other home services: No Alcohol intake: current Alcohol intake frequency: a few times a month Alcohol type: wine Patient Tobacco Use Status: Current everyday Tobacco user Tobacco use type: Cigarette Cigarettes Per Day: 6 Use of substances other than those prescribed or required for medical reasons: No Have you been hit, kicked, punched, or otherwise hurt by someone within the past year? If so, by whom?: No Do you feel safe in your current relationship?: Yes Is there a partner from a previous relationship who is making you feel unsafe now?: No Are you made to feel afraid or neglected: No [facility] Practices: druze Are you DNR?: No Advance Directives: No Advance Directives Information Provided: No Advance Directives on File: No Do you have a plan to hurt others: No Plan Recently lost weight without trying: No Nutrition Risks: No Nutritional Risk Patient : No : No Meds Allergies Allergy/AdvReac Type Severity Reaction Status Date / Time No Known Allergies Allergy Verified 04/08/25 06:22 Active Medications: Current Medications Acetaminophen (Acetaminophen 325 Mg Tablet) 650 mg PO Q6H PRN PRN Reason: Pain, Mild 1-3,fever,headache Last Admin: 04/08/25 12:30 Dose: 650 mg Albuterol Sulfate (Albuterol Sulfate (0.083%) 2.5 Mg/3 Ml Vial.Neb) 2.5 mg INHALE ONCE PRN PRN Reason: Shortness of Breath/Wheezing Aspirin (Aspirin Enteric Coated 81 Mg Tablet.Dr) 81 mg PO DAILY [facility]ARDO Atorvastatin Calcium (Atorvastatin Calcium 80 Mg Tablet) 80 mg PO DAILY LEOBARDO Calcium Carbonate (Calcium Carbonate 750 Mg Tab.Chew) 750 mg PO Q4H PRN PRN Reason: Heartburn Fluticasone/Umeclidinium/Vilanterol (Fluticasone/Umeclidinium/Vilanterol 100/62.5/25 Blst.W.Dev) 1 puff INHALE RDAILY LEOBARDO Hydromorphone HCl (Hydromorphone Hcl 2 Mg/Ml Vial) 2 mg IVPUSH Q4H PRN; Protocol PRN Reason: Pain, Severe (Pain Scale 7-10) Lactated Ringer's (Lr) 1,000 mls @ 100 mls/hr IVCONT .Q10H [facility] Last Admin: 04/08/25 12:50 Dose: 100 mls/hr Cefazolin Sodium/Dextrose (Ancef) 2 gm in 50 mls @ 100 mls/hr IV POSTOP ONE Stop: 04/08/25 15:29 Last Admin: 04/08/25 14:56 Dose: 100 mls/hr Lisinopril (Lisinopril 20 Mg Tablet) 20 mg PO DAILY [facility]; Protocol Magnesium Hydroxide (Milk Of Magnesia 30 Ml Oral.Susp) 30 ml PO DAILY PRN PRN Reason: Constipation Melatonin (Melatonin 3 Mg Tablet) 6 mg PO BEDTIME PRN PRN Reason: Insomnia Metoprolol Succinate (Metoprolol Succinate Er 25 Mg Tab.Er.24h) 25 mg PO DAILY [facility]; Protocol Naloxone HCl (Naloxone Hcl 0.4 Mg/Ml Vial) 0.04 mg IVPUSH Q5M PRN PRN Reason: Excessive sedation or RR < 8 Omeprazole (Omeprazole 20 Mg Capsule.Dr) 20 mg PO DAILY@0630 [facility] Oxycodone HCl (Oxycodone Hcl Immed Release 5 Mg Tablet) 5 mg PO Q4H PRN PRN Reason: Pain, Moderate(Pain Scale 4-6) Sodium Chloride (0.9 % Sodium Chloride Flush 3 Ml Syringe) 3 ml IVFLUSH QSHIFT [facility] Home Medications ?Medication ?Instructions ?Recorded ?Confirmed ?Last Taken ?Type aspirin 81 mg tablet,delayed 81 mg PO DAILY 11/06/24 04/08/25 04/07/25 History release lisinopril 20 mg tablet 20 mg PO DAILY 11/06/24 04/08/25 04/07/25 History metoprolol succinate 25 mg 25 mg PO DAILY 11/06/24 04/08/25 04/08/25 History tablet,extended release 24 hr omeprazole 20 mg capsule,delayed 20 mg PO DAILY@0630 11/06/24 04/08/25 04/08/25 History release rosuvastatin 40 mg tablet 40 mg PO DAILY 11/06/24 04/08/25 04/07/25 History albuterol sulfate 90 mcg/actuation 1 - 2 puff inhalation Q4-6H PRN 03/21/25 04/08/25 Unknown History aerosol inhaler Shortness Of Breath Or Wheezing calcium 600 mg (as 1 tab PO DAILY 03/21/25 04/08/25 04/07/25 History carbonate)-vitamin D3 10 mcg (400 unit) tablet (Calcium 600 + D(3)) diphenhydramine 25 1 tab PO BEDTIME PRN Insomnia 03/21/25 04/08/25 Unknown History mg-acetaminophen 500 mg tablet (Acetaminophen PM) fluticasone fur. 100 mcg-umeclid 1 ea inhalation DAILY 03/21/25 04/08/25 04/07/25 History 62.5 mcg-vilant 25 mcg inhalat.powder (Trelegy Ellipta) topiramate 50 mg tablet 50 mg PO DAILY PRN Headache 04/08/25 04/08/25 Unknown History trazodone 50 mg tablet 50 mg PO BEDTIME 04/08/25 04/08/25 04/07/25 History Physical Exam Vital Signs: Vital Signs: Last Vital Signs Temp 96.1 F L 04/08/25 13:00 Pulse 72 04/08/25 15:00 Resp 12 04/08/25 15:00 BP 133/93 H 04/08/25 15:00 Pulse Ox 91 L 04/08/25 15:00 O2 Del Method Room Air 04/08/25 15:00 O2 Flow Rate 2 04/08/25 11:54 BMI result Body Mass Index 27.1 Const: General: no acute distress and alert Nutritional Appearance: not obese Orientation/consciousness: Other orientation findings ( oriented) HEENT: Head: Yes atraumatic Eyes: General: appearance normal, both eyes and all related structures Sclerae: sclerae normal EOM: EOMs intact bilaterally Neck: Other: Right carotid surgical site with no hematoma Neck: Yes supple Lymphatic: no lymphadenopathy noted Resp: Effort & Inspection: normal respiratory effort and no use of accessory muscles Auscultation: clear to auscultation bilaterally Cardio: Rate: regular rate Rhythm: regular rhythm Heart sounds: no gallops, no murmurs and no rubs GI: Palpation (GI): Soft to palpation and Other GI palpation findings present ( Nontender) Auscultation: normal bowel sounds Skin: General skin exam: other ( warm) Extrem: General: No clubbing, No cyanosis and No edema Results Labs 04/08/25 06:58 04/08/25 06:58 Labs: Laboratory Results - last 24 hr 04/08/25 06:58 MCV 101.9 H MCH 32.3 MCHC 31.7 RDW 13.9 Plt Count 119 L MPV 10.7 Absolute Nucleated RBC 0.000 Nucleated RBC % (auto) 0.0 PT 10.2 L INR 0.9 APTT 28.6 Anion Gap 13 Estim Creat Clear Calc 35.8 Estimated GFR 33 Random Glucose 104 Calcium 9.4 Assessment and Plan (1) Status post carotid endarterectomy: Status: Acute Plan Assessment: 60-year-old lady with prior stroke and residual left-sided deficits, now postoperative day 0 after an elective right carotid endarterectomy being monitored in the intensive care unit. Plan: Neuro: No acute issues. Cardiac: Postoperative day 0 after right carotid endarterectomy. Vascular surgery service care appreciated. Maintain systolic blood pressure under 160. Pulmonary: No acute issues. Renal: No acute issues. Endo: No acute issues. GI: No acute issues. ID: No acute issues Heme/Onc: No acute issues. Psych: No acute issues. Miscellaneous: No acute issues. Prophylaxis: Per vascular surgery Diet: Per vascular surgery
[2025-04-08] MEDS: 0.9 % Sodium Chloride Flush 3 ML SYRINGE IVFLUSH (16:45)
--- NOTE | 2025-04-08 17:47 | PC.NURSE ---
Pt arrived to the ICU approx @ 1220 s/p right carotid endarterectomy.? Neuro: Alert? & Oriented, chronic left side weakness? Respiratory:? Clear lung sounds on RA,? Cardiac: Sinus Rhythm on tele, A-line to right wrist. + left dorsalis pedis with doppler, palpable right? dorsalis pedis GI/: LBM 8/9, +bowel sounds;? So in place Skin: surgical site to right neck? Infectious:? IV abx? Lines: peripheral IV x1.
[2025-04-09] VITALS (13 sets, daily range): BP systolic 93–125; BP diastolic 48–72; PULSE 66–90; RESP 12–18; TEMP 36.1–36.8; O2SAT 94–100
[2025-04-09 05:47] LABS: MANUAL DIFF FLAG NO
[2025-04-09 05:53] LABS: Hematocrit 28.0 % (37.0-47.0); Hemoglobin 8.7 g/dl (12.0-16.0); Imm Gran Abs Auto 0.02 X10*3/uL (0.00-0.03); Imm Gran Pct Auto 0.3 % (0.0-0.4); Lymphocytes Absolute Auto 1.3 X10*3/uL (1.2-4.9); Mean Corpuscular HGB Conc 31.1 g/dl (31.0-35.0); Mean Corpuscular Hemoglobin 31.8 pg (27.0-33.0); Mean Corpuscular Volume 102.2 fL (80.0-98.0); NRBC Abs Auto 0.000 X10*3/uL (0.0-0.012); NRBC Pct Auto 0.0 /100WBC (0.0-0.2); Platelet Count 114 X10*3/uL (160-400); Red Blood Count 2.74 X10*6/uL (4.20-5.50); White Blood Count 5.9 X10*3/uL (4.8-10.8)
[2025-04-09 06:21] LABS: Anion Gap 11 (12-20); Blood Urea Nitrogen 28 mg/dL (9-16); Calcium 8.8 mg/dL (8.4-10.2); Carbon Dioxide 22 mmol/L (22-29); Chloride 112 mmol/L (96-108); Creatinine Clr Calc Pharmacy 42.5; Estimated Glomerular Filt Rate 40; Potassium 4.6 mmol/L (3.3-5.1); Sodium 140 mmol/L (135-145)
[2025-04-09 06:23] LABS: Albumin Level 3.8 g/dL (3.5-5.0); Magnesium 1.9 mg/dL (1.6-2.6)
--- NOTE | 2025-04-09 07:20 | PC.NURSE ---
Tigertext sent to Dr Maguire requesting Topiramate to be scheduled per pt request; awaiting orders.
[2025-04-09] MEDS: Metoprolol Succinate ER 25 MG TAB.ER.24H PO (07:48)
[2025-04-09] MEDS: Aspirin Enteric Coated 81 MG TABLET.DR PO (07:48)
--- NOTE | 2025-04-09 08:12 | HO.POSTANES ---
Post Anesthesia Evaluation Post Anesthesia Evaluation Date of Service: 04/09/25 Vital Signs: Vital Signs Temp Pulse Resp BP Pulse Ox O2 Del Method 04/09/25 07:48 85 108/62 04/09/25 07:48 100/48 L 04/09/25 07:00 76 15 95/62 98 Room Air 04/09/25 06:00 80 13 101/60 98 Room Air 04/09/25 05:00 75 13 105/55 L 98 Room Air 04/09/25 04:00 74 12 112/65 98 Room Air 04/09/25 03:00 76 12 104/66 97 Room Air 04/09/25 02:00 75 12 120/72 98 Room Air 04/09/25 01:00 75 12 125/68 97 Room Air 04/09/25 00:00 98.2 F 80 14 125/69 97 Room Air 04/08/25 23:00 74 14 131/57 L 99 Room Air 04/08/25 22:00 82 14 139/69 97 Room Air 04/08/25 21:00 78 10 L 127/65 97 Room Air Anesthesia: General Mental Status: Awake Pain Control: Satisfactory Nausea/Vomiting: None Hydration: Adequate Anesthesia-Related Issues: No Anes. Related Issues
--- NOTE | 2025-04-09 13:01 | P.DS_ITS ---
DS: Providers Provider Date of Service: 04/09/25 Date of admission: 04/08/25 07:16 Date of discharge: 04/09/25 Primary care physician: Rolo Gipson MD DS: Diagnosis Discharge Diagnosis (1) Status post carotid endarterectomy: Status: Acute DS: Summary Hospital Course Hospital Course: Patient underwent right carotid endarterectomy on 04/08/2025. No issues postoperatively. She was observed in ICU overnight and subsequently transferred to the floor. She was discharged postop day 1. Postop day 1 returned to baseline neurologic status. She was subsequently discharged will follow up with us in approximately 2 weeks time Time Attestation Discharge Coordination Time (in mins): 25 Quality: Safe Use of Opioids Does Pt have an Active Cancer Diagnosis on the Problem List?: No Quality: Stroke Does the patient have a stroke diagnosis?: No Physical Exam Vital Signs: Vital Signs: Last Vital Signs Temp 96.9 F 04/09/25 11:28 Pulse 66 04/09/25 11:28 Resp 16 04/09/25 11:28 BP 104/70 04/09/25 11:28 Pulse Ox 100 04/09/25 11:28 O2 Del Method Room Air 04/09/25 11:28 O2 Flow Rate 2 04/08/25 11:54 BMI result Body Mass Index 27.1 Const: General: cooperative, healthy appearing and comfortable Orientation/consciousness: oriented to person, oriented to place and oriented to time HEENT: Head: Yes normal to inspection Neck: Neck: Yes normal visual inspection Carotids: no bruits Chest: Chest palpation & inspection: normal inspection of the chest Resp: Effort & Inspection: normal respiratory effort and able to speak in complete sentences Auscultation: clear to auscultation bilaterally, no crackles, no rales, no rhonchi and no wheezes Cardio: Rate: regular rate Rhythm: regular rhythm Heart sounds: S1 normal heart sound present and S2 normal heart sound present Bruits: no carotid bruits Peripheral pulses: Peripheral pulses 2+ throughout GI: Inspection: Yes normal to inspection Skin: Other: Right neck incision healing well Wounds: no wounds Hair: normal Neuro: General: oriented to person, oriented to place and oriented to time Cranial nerves: Yes CN's II-XII intact bilaterally and Yes Normal hearing present Cognition (Neuro): normal cognition Motor exam (neuro): 5/5 motor strength present throughout Extrem: Other: venous exam: No significant superficial varicosities or spider telangiectasias, minimal edema General: No clubbing, No cyanosis and No edema Psych: Appearance: grossly normal Mental Status: mental status grossly normal Speech and movement: Normal speech and movement present DS: Data Data Completed and Pending Pending studies at discharge: Pending at discharge 04/08/25 09:16 Surgical [PTH] Routine Labs on day of discharge: Laboratory Results - last 24 hr 04/09/25 05:32 WBC 5.9 RBC 2.74 L Hgb 8.7 L Hct 28.0 L MCV 102.2 H MCH 31.8 MCHC 31.1 RDW 14.2 Plt Count 114 L MPV 10.7 Immature Gran % (Auto) 0.3 Neut % (Auto) 69.3 Lymph % (Auto) 21.9 [place] % (Auto) 7.5 Eos % (Auto) 0.7 Baso % (Auto) 0.3 Lymph # (Auto) 1.3 [place] # (Auto) 0.4 Eos # (Auto) 0.0 Baso # (Auto) 0.0 Abs Immat Gran (auto) 0.02 Absolute Neuts (auto) 4.1 Absolute Nucleated RBC 0.000 Nucleated RBC % (auto) 0.0 Sodium 140 Potassium 4.6 Chloride 112 H Carbon Dioxide 22 Anion Gap 11 L BUN 28 H Creatinine 1.33 Estim Creat Clear Calc 42.5 Estimated GFR 40 Random Glucose 109 Calcium 8.8 D Phosphorus 3.3 Magnesium 1.9 Albumin 3.8 Discharge Plan Discharge Anticipated Discharge Date/Time: 04/09/25 12:58 Patient Disposition: Home, Self-Care Discharge Diagnosis: Status post carotid endarterectomy Referrals: Rolo Gipson MD [Primary Care Provider, Internal Medicine] - 1 Week Discharge Medications: New oxycodone-acetaminophen [Percocet] 5-325 mg tablet 1 tab PO Q8H PRN (Reason: pain) Qty: 7 0RF Rx Instructions: Partial Fill upon patient request. Continued albuterol sulfate 90 mcg/actuation HFA aerosol inhaler 1 - 2 puff INHALATION Q4-6H PRN (Reason: Shortness Of Breath Or Wheezing) Trelegy Ellipta 100-62.5-25 mcg blister with device 1 ea INHALATION DAILY calcium carbonate-vitamin D3 [Calcium 600 + D(3)] 600 mg-10 mcg (400 unit) Tablet 1 tab PO DAILY diphenhydramine-acetaminophen [Acetaminophen PM] 25-500 mg Tablet 1 tab PO BEDTIME PRN (Reason: Insomnia) trazodone 50 mg tablet 50 mg PO BEDTIME topiramate 50 mg tablet 50 mg PO DAILY PRN (Reason: Headache) lisinopril 20 mg tablet 20 mg PO DAILY aspirin 81 mg tablet,delayed release (DR/EC) 81 mg PO DAILY omeprazole 20 mg capsule,delayed release(DR/EC) 20 mg PO DAILY@0630 metoprolol succinate 25 mg tablet extended release 24 hr 25 mg PO DAILY rosuvastatin 40 mg tablet 40 mg PO DAILY Discharge Orders: Discharge Order (Routine); Ordered 04/09/25 Ordered By: Rajinder Maguire Diet: Advance to usual diet Activity on Discharge: As tolerated Stand Alone Forms: Patient Portal Discharge page Print Language: Mohawk Care Plan Goals: Carotid surveillance Health Concerns: Carotid artery disease Plan of Treatment: Carotid surveillance Assessment: Status post carotid endarterectomy
== END 2025-04-09 13:31 | disposition home or self-care (01) | DRG 38 ==
LOC: HO.SSSA 07:17 → HO.ICU 10:48 → HO.S3 04-09 09:00
PROVIDERS: Internal Medicine Pulmonary Disease; Nurse Practitioner; Admitting Provider Surgery Vascular Surgery; PCP Internal Medicine; Visit Provider Surgery Vascular Surgery
PROC: 03CH0ZZ Extirpation of Matter from Right Common Carotid Artery, Open Approach (ICD-10-PCS; CPT 35301; principal; 2025-04-08 07:30)
DX: I65.21 Occlusion and stenosis of right carotid artery (principal); I69.354 Hemiplegia and hemiparesis following cerebral infarction affecting left non-dominant side; J44.9 Chronic obstructive pulmonary disease, unspecified; I69.328 Other speech and language deficits following cerebral infarction; F17.210 Nicotine dependence, cigarettes, uncomplicated; Z71.6 Tobacco abuse counseling; Z79.82 Long term (current) use of aspirin; Z79.899 Other long term (current) drug therapy
CPT/HCPCS: 36415; 80048; 82040; 83735; 84100; 85025; 85027; 85610; 85730; 86850; 86900; 86901; 88304; 88311; A4649; C1768; C9250; J0690; J1100; J1171; J1644; J2003; J2250; J2371; J2405; J2704; J2795; J3010; J7120

== ENCOUNTER → 2025-04-08 07:16 | Outpatient (BNV) | payer MEDICARE, SELFPAY | PROVIDERS: Admitting Provider Surgery Vascular Surgery; PCP Internal Medicine; Visit Provider Surgery Vascular Surgery | DX: I65.21 Occlusion and stenosis of right carotid artery (principal) | CPT/HCPCS: 35301; 99238 ==

== ENCOUNTER → 2025-04-08 07:16 | Outpatient (BNV) | payer MEDICARE, SELFPAY | PROVIDERS: Admitting Provider Surgery Vascular Surgery; PCP Internal Medicine; Visit Provider Internal Medicine Pulmonary Disease | DX: Z98.890 Other specified postprocedural states (principal) | CPT/HCPCS: 99222 ==

== ENCOUNTER 2025-05-07 09:05 | Outpatient (AMB) | payer MEDICARE, SELFPAY ==
--- NOTE | 2025-05-07 09:11 | MHC.OFFVIS ---
Intake Visit Reasons: 2 week follow up R CEA 04/08/25 Intake Note: 2 week follwo up Right CEA 04/08/25. Pt states she is doing very well Word Processing Specialist Required: No Accompanied by: Self / Same As Patient Allergies No Known Allergies Allergy (Verified 05/07/25 09:12) HPI HPI 2 week follow up R CEA 04/08/25: Details: The patient is a 60-year-old female presenting with a follow-up regarding her right carotid endarterectomy. The procedure was performed on 04/08/2025, and the patient reports that the surgical site has healed well, with expectations of further improvement over the next three months. Postoperatively, the patient experiences numbness in the area, which is expected to improve over the next two to three months. The patient is accustomed to some numbness due to a previous stroke, which has been a part of her medical history. She now presents for routine postoperative follow-up. [facility] Medical History GERD (gastroesophageal reflux disease) CVA (cerebral vascular accident) Osteoporosis PVD (peripheral vascular disease) Hemiplegia Asthma Smoker Hyperlipidemia, unspecified Primary hypertension Blood clot of neck vein Stroke delivery delivered Surgical History Hx of section Family History Mother Heart attack Father Heart attack Sister History of open heart surgery Social History Household Members: None Housing: Apartment Are you a primary director of health care marketing to a significant other at home: No Do you presently have visiting nurse or other home services: No Alcohol intake: current Alcohol intake frequency: a few times a month Alcohol type: wine Patient Tobacco Use Status: Current everyday Tobacco user Tobacco use type: Cigarette Cigarettes Per Day: 6 Review of Systems Const All systems reviewed & are unremarkable except as noted in HPI and below Reports no additional complaints ENT Reports Normal hearing present Card Denies chest pain, Denies chest pain at rest, Denies chest pain with activity and Denies pedal edema Resp Denies cough GI Denies abdominal pain Musc Denies abnormal gait, Denies muscle cramps and Denies radiating pain into limb Skin/Breast Denies skin ulcer and Denies wounds Neuro Reports Normal hearing present and Denies abnormal gait Psych Reports no additional complaints Physical Exam Const General: cooperative, healthy appearing and comfortable Orientation/consciousness: oriented to person, oriented to place and oriented to time HEENT Head: Yes normal to inspection Neck Neck: Yes normal visual inspection Carotids: no bruits Chest Chest palpation & inspection: normal inspection of the chest Resp Effort & Inspection: normal respiratory effort and able to speak in complete sentences Auscultation: clear to auscultation bilaterally, no crackles, no rales, no rhonchi and no wheezes Cardio Rate: regular rate Rhythm: regular rhythm Heart sounds: S1 normal heart sound present and S2 normal heart sound present Bruits: no carotid bruits Peripheral pulses: Peripheral pulses 2+ throughout GI Inspection: Yes normal to inspection Skin Other: Neck incision healing well Wounds: no wounds Hair: normal Neuro General: oriented to person, oriented to place and oriented to time Cranial nerves: Yes CN's II-XII intact bilaterally and Yes Normal hearing present Cognition (Neuro): normal cognition Motor exam (neuro): 5/5 motor strength present throughout Extrem Other: venous exam: No significant superficial varicosities or spider telangiectasias, minimal edema General: No clubbing, No cyanosis and No edema Psych Appearance: grossly normal Mental Status: mental status grossly normal Speech and movement: Normal speech and movement present Assessment & Plan Assessment & Plan (1) Bilateral carotid artery stenosis: Comment: 04/08/2025 - right carotid endarterectomy Code(s): I65.23 - Occlusion and stenosis of bilateral carotid arteries Category: Medical Plan: In short patient has done well status post carotid endarterectomy. We have reviewed signs and symptoms of a stroke. We also discussed risk factor modification inclusive a healthy diet low in cholesterol. The patient will follow up with us with surveillance ultrasound of the carotids three-month. Should there be any changes or signs or symptoms of a stroke we will be happy to see them back sooner. Thank you for allowing us to participate in this patient's care. If there are any questions or concerns please do not hesitate to contact us. Orders: Orders US carotid duplex BI Today I65.23 - Occlusion and stenosis of bilateral carotid arteries Coding Level of Care Code Est Pt Level 4 (24419) Diagnoses Bilateral carotid artery stenosis I65.23
== END 2025-05-07 09:44 | disposition home or self-care (01) ==
LOC: HO.HVS 09:05
PROVIDERS: PCP Internal Medicine; Visit Provider Surgery Vascular Surgery
DX: I65.23 Occlusion and stenosis of bilateral carotid arteries (principal)
CPT/HCPCS: 99024

== ENCOUNTER → 2025-05-07 09:05 | Outpatient (BNVA) | payer MEDICARE, SELFPAY | PROVIDERS: PCP Internal Medicine; Visit Provider Surgery Vascular Surgery | DX: Z48.812 Encounter for surgical aftercare following surgery on the circulatory system (principal); I65.23 Occlusion and stenosis of bilateral carotid arteries | CPT/HCPCS: 99212 ==